=== PATIENT | female | born 1995 | race Caucasian/White ===

== ENCOUNTER 2023-01-03 22:39 | Emergency (ER) | payer OTHER ==
[~2023-01-03] VITALS: Ht 188 cm; Wt 86.2 kg
[2023-01-03 22:43] VITALS: BP 118/77; PULSE 79; RESP 18; TEMP 98; O2SAT 97
[2023-01-03] MEDS ORDERED: NACL 0.9% 1,000 ML IV ONE (22:45)
--- NOTE | 2023-01-03 22:46 | NUR ---
PT [facility] ER BED 11
[2023-01-03 23:02] LABS: BASOPHILS # (AUTO) 0.1 K/uL (0.00-0.22); BASOPHILS % (AUTO) 1.2 % (0.0-2.0); EOSINOPHILS # (AUTO) 0.2 K/uL (0-0.4); EOSINOPHILS % (AUTO) 2.3 % (0.0-4.0); HEMATOCRIT 35.1 % (36-48); HEMOGLOBIN 11.8 g/dL (12.0-16.0); LYMPHOCYTES # (AUTO) 2.8 K/uL (2.5-16.5); LYMPHOCYTES % (AUTO) 33.2 % (20.5-51.1); MEAN CORPUSCULAR HEMOGLOBIN 30 pg (27-31); MEAN CORPUSCULAR HGB CONC 34 g/dL (33-37); MEAN CORPUSCULAR VOLUME 89.4 fL (80-94); MONOCYTES # (AUTO) 0.9 K/uL (0.8-1.0); MONOCYTES % (AUTO) 10.5 % (1.7-9.3); NEUTROPHILS # (AUTO) 4.5 K/uL (1.8-7.7); NEUTROPHILS % (AUTO) 52.8 % (42.2-75.2); PLATELET COUNT (AUTO) 359 K/uL (140-450); RED BLOOD CELL COUNT(AUTO) 3.93 MIL/uL (4.20-5.40); RED CELL DISTRIBUTION WIDTH 13.3 % (11.6-13.7); WHITE BLOOD COUNT (AUTO) 8.5 K/uL (4.8-10.8)
[2023-01-03 23:17] LABS: ALBUMIN 3.5 g/dL (3.4-5.0); ANION GAP 12.5 (8-16); CARBON DIOXIDE 26.6 mmol/L (21-32); CREATININE 1.1 mg/dL (0.6-1.3); POTASSIUM 4.1 mmol/L (3.5-5.1); TOTAL BILIRUBIN 0.3 mg/dL (0.0-1.0)
[2023-01-04 00:01] VITALS: BP 118/77; PULSE 79; RESP 18; TEMP 98; O2SAT 97
--- NOTE | 2023-01-04 00:01 | NUR ---
Patient discharged with v/s stable. Written and verbal after care instructions given and explained. Patient verbalized understanding. Ambulatory with steady gait. All questions addressed prior to discharge. Advised to follow up with PMD.
== END 2023-01-04 00:01 | disposition home or self-care (01) ==
LOC: MED 22:39
DX: E86.0 Dehydration (principal); R53.1 Weakness; F15.10 Other stimulant abuse, uncomplicated; Z71.6 Tobacco abuse counseling; F20.9 Schizophrenia, unspecified; F17.210 Nicotine dependence, cigarettes, uncomplicated
CPT/HCPCS: 36415; 80053; 85025; 96360; 99284; J7030